=== PATIENT | female | born 1995 | race Caucasian/White ===

== ENCOUNTER 2017-08-02 08:54 | Emergency (ER) | payer OTHER ==
[~2017-08-02] VITALS: Ht 170.2 cm; Wt 109.6 kg
[2017-08-02 08:56] VITALS: BP 144/76
[2017-08-02] MEDS ORDERED: METF750T PO (09:05)
[2017-08-02] MEDS ORDERED: LEXA1TAB PO (09:05)
[2017-08-02] MEDS ORDERED: ABIL1TAB11 PO (09:05)
[2017-08-02] MEDS ORDERED: CLAR10CA3 PO (09:05)
[2017-08-02] MEDS ORDERED: FLON1SPR (10:50)
[2017-08-02] MEDS ORDERED: ERYTOIN8 OU (10:50)
[2017-08-02] MEDS ORDERED: ALL10TAB27 PO (10:50)
== END 2017-08-02 11:16 | disposition home or self-care (01) ==
LOC: M ED 08:54
DX: J06.9 Acute upper respiratory infection, unspecified (principal); H10.33 Unspecified acute conjunctivitis, bilateral; E11.9 Type 2 diabetes mellitus without complications; F41.9 Anxiety disorder, unspecified; F33.9 Major depressive disorder, recurrent, unspecified; F17.210 Nicotine dependence, cigarettes, uncomplicated; Z79.84 Long term (current) use of oral hypoglycemic drugs; Z79.899 Other long term (current) drug therapy; Z88.1 Allergy status to other antibiotic agents; Z88.2 Allergy status to sulfonamides; Z91.013 Allergy to seafood

== ENCOUNTER → 2018-02-04 | Outpatient (CLI) | payer OTHER ==
[2018-02-04 12:09] LABS: BASO % 0.3 % (0.0-1.0); EOS # 0.3 10^3/uL (0.0-0.50); EOS % 2.3 % (0.0-3.0); HEMATOCRIT 35.5 % (36.0-47.0); HEMOGLOBIN 11.3 g/dl (12.0-15.5); IMMATURE GRANULOCYTE % 0.3 % (0-3.0); LYMPH # 3.6 10^3/uL (1.5-6.5); LYMPH % 32.4 % (24.0-44.0); MEAN CORPUSCULAR HGB CONC 31.8 g/dl (32.0-36.5); MEAN CORPUSCULAR VOLUME 81.6 fl (80.0-96.0); MONO # 0.8 10^3/uL (0.0-0.8); MONO % 7.6 % (0.0-5.0); NEUTROPHILS # 6.4 10^3/uL (1.8-7.7); NEUTROPHILS % 57.1 % (36.0-66.0); PLATELET COUNT, AUTOMATED 314 10^3/uL (150-450); RED BLOOD COUNT 4.35 10^6/uL (4.00-5.40); RED CELL DISTRIBUTION WIDTH 14.8 % (11.5-14.5); WHITE BLOOD COUNT 11.1 10^3/uL (4.0-10.0)
[2018-02-04 12:59] LABS: ALBUMIN 3.5 GM/DL (3.2-5.2); ALKALINE PHOSPHATASE 102 U/L (45-117); ALT/SGPT 36 U/L (12-78); ANION GAP 5 MEQ/L (8-16); AST/SGOT 17 U/L (7-37); BILIRUBIN,TOTAL 0.2 MG/DL (0.2-1.0); BLOOD UREA NITROGEN 16 MG/DL (7-18); CARBON DIOXIDE LEVEL 27 MEQ/L (21-32); CHLORIDE LEVEL 109 MEQ/L (98-107); CREATININE FOR GFR 0.66 MG/DL (0.55-1.30); GLOMERULAR FILTRATION RATE > 60.0 (>60); GLUCOSE, FASTING 101 MG/DL (70-100); POTASSIUM SERUM 4.5 MEQ/L (3.5-5.1); SODIUM LEVEL 141 MEQ/L (136-145); TOTAL PROTEIN 7.4 GM/DL (6.4-8.2); URIC ACID 4.1 MG/DL (2.6-6.0)
[2018-02-06 00:06] LABS: Lyme Disease IgG/IgM Antibodie <0.91 ISR (0.00-0.90); Lyme Disease IgM Ab Quantitati <0.80 index (0.00-0.79)
== END ==
LOC: M WUC 09:51
DX: M25.471 Effusion, right ankle (principal)
CPT/HCPCS: 84550

== ENCOUNTER → 2018-06-28 | Outpatient (CLI) | payer OTHER | LOC: M RAD 15:20 | DX: N60.32 Fibrosclerosis of left breast (principal) | CPT/HCPCS: 76642 ==

== ENCOUNTER 2018-11-13 22:11 | Emergency (ER) | payer OTHER ==
[~2018-11-13] VITALS: Ht 170.2 cm; Wt 120.0 kg
[~2018-11-13 22:11] MED LIST: ABIL1TAB11 PO; ALL10TAB28 PO; CLAR10CA3 PO; ERYTOIN8 OU; FLON1SPR; LEXA1TAB PO; METF750T PO
[2018-11-13] MEDS ORDERED: MULTCAP PO (22:16)
[2018-11-13] MEDS ORDERED: IBUPROFEN 600 MG TAB PO ONE (22:45)
[2018-11-13] MEDS ORDERED: METOCLOPRAMIDE INJ 10MG/2ML VIAL (J2765) IV ONE (22:45)
[2018-11-13] MEDS ORDERED: MECLIZINE 25 MG TABLET PO ONE (22:45)
[2018-11-13] MEDS ORDERED: NS 1,000 ML IV ONE (22:45)
[2018-11-13 23:05] LABS: BASO % 0.2 % (0.0-1.0); EOS # 0.1 10^3/uL (0.0-0.50); HEMATOCRIT 37.7 % (36.0-47.0); HEMOGLOBIN 11.9 g/dl (12.0-15.5); LYMPH # 1.4 10^3/uL (1.5-6.5); LYMPH % 20.7 % (24.0-44.0); MEAN CORPUSCULAR HEMOGLOBIN 25.8 pg (27.0-33.0); MEAN CORPUSCULAR HGB CONC 31.6 g/dl (32.0-36.5); MEAN CORPUSCULAR VOLUME 81.8 fl (80.0-96.0); MONO # 0.6 10^3/uL (0.0-0.8); MONO % 9.5 % (0.0-5.0); NEUTROPHILS # 4.5 10^3/uL (1.8-7.7); NEUTROPHILS % 67.3 % (36.0-66.0); PLATELET COUNT, AUTOMATED 253 10^3/uL (150-450); RED BLOOD COUNT 4.61 10^6/uL (4.00-5.40); WHITE BLOOD COUNT 6.6 10^3/uL (4.0-10.0)
[2018-11-13 23:34] LABS: BLOOD UREA NITROGEN 17 MG/DL (7-18); CALCIUM LEVEL 8.8 MG/DL (8.5-10.1); CARBON DIOXIDE LEVEL 29 MEQ/L (21-32); CHLORIDE LEVEL 103 MEQ/L (98-107); CREATININE FOR GFR 0.71 MG/DL (0.55-1.30); GLOMERULAR FILTRATION RATE > 60.0 (>60); GLUCOSE, FASTING 100 MG/DL (70-100); POTASSIUM SERUM 3.7 MEQ/L (3.5-5.1); SODIUM LEVEL 140 MEQ/L (136-145)
[2018-11-14 00:24] LABS: HCG, SERUM QUALITATIVE NEGATIVE (NEGATIVE)
[2018-11-14] MEDS ORDERED: MECL-68 PO ×2 (01:09→01:26)
[2018-11-14 01:20] VITALS: BP 125/73
--- NOTE | 2018-11-14 17:49 | ECGEPIP ---
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
== END 2018-11-14 01:28 | disposition home or self-care (01) ==
LOC: M ED 22:11
DX: R42 Dizziness and giddiness (principal); R11.0 Nausea; I45.89 Other specified conduction disorders; E11.9 Type 2 diabetes mellitus without complications; Z72.0 Tobacco use; Z79.84 Long term (current) use of oral hypoglycemic drugs; Z79.899 Other long term (current) drug therapy; Z88.2 Allergy status to sulfonamides; Z91.013 Allergy to seafood
CPT/HCPCS: 80048; 81001; 84443; 84703; 85025; 93005; 96361; 96374; 99284; J2765

== ENCOUNTER 2019-04-02 19:51 | Emergency (ER) | payer OTHER ==
[~2019-04-02] VITALS: Ht 172.7 cm; Wt 94.1 kg
[2019-04-02 19:51] VITALS: BP 134/81
[~2019-04-02 19:51] MED LIST changes: +MECL-68 PO; +MULTCAP PO
[2019-04-02] MEDS ORDERED: VITA-122 (20:00)
[2019-04-02] MEDS ORDERED: CALC-333 PO (20:00)
[2019-04-02] MEDS ORDERED: OMEP-218 (20:00)
[2019-04-02] MEDS ORDERED: ACETAMINOPHEN 325 MG TAB PO ONE (21:00)
== END 2019-04-02 21:27 | disposition home or self-care (01) ==
LOC: M ED 19:51
DX: H66.93 Otitis media, unspecified, bilateral (principal); I25.2 Old myocardial infarction; I10 Essential (primary) hypertension; E78.5 Hyperlipidemia, unspecified; J30.2 Other seasonal allergic rhinitis; Z79.899 Other long term (current) drug therapy

== ENCOUNTER → 2020-05-07 | Emergency (ER) | payer OTHER ==
[~2020-05-07] MED LIST changes: -ALL10TAB28 PO; +CALC-333 PO; +CETI-24 PO; +HALOPERIDOL 5MG/ML VIAL (J1630 PER 1) ONE; -MECL-68 PO; +MECL1TAB31 PO; -METF750T PO; +METF750T36 PO; +OMEP-218; +VITA-122; +diphenhydrAMINE 50MG/ML VIAL (J1200) ONE
[2020-06-20 16:11] LABS: HEMATOCRIT 51.8 % (36.0-47.0); HEMOGLOBIN 17.5 g/dl (12.0-15.5); MEAN CORPUSCULAR HEMOGLOBIN 29.8 pg (27.0-33.0); MEAN CORPUSCULAR HGB CONC 33.8 g/dl (32.0-36.5); MEAN CORPUSCULAR VOLUME 88.2 fl (80.0-96.0); PLATELET COUNT, AUTOMATED 187 10^3/uL (150-450); RED BLOOD COUNT 5.87 10^6/uL (4.00-5.40); WHITE BLOOD COUNT 8.5 10^3/uL (4.0-10.0)
== END | disposition home or self-care (01) ==
LOC: M ED 10:40
DX: R45.851 Suicidal ideations (principal); F10.129 Alcohol abuse with intoxication, unspecified; F32.9 Major depressive disorder, single episode, unspecified; Z79.899 Other long term (current) drug therapy; Z88.2 Allergy status to sulfonamides; Z91.013 Allergy to seafood
CPT/HCPCS: 80048; 80076; 80307; 84703; 85027; 96372; 99285; G0480; J1200; J1630